=== PATIENT | female | born 1960 | race Caucasian/White ===

== ENCOUNTER 2018-09-09 13:38 | Outpatient (CLI) | payer MEDICAID, SELFPAY ==
--- NOTE | 2018-09-09 13:06 | DI.RAD_ITS ---
SYMPTOM/DIAGNOSIS: F/U RT DASH RIGHT HIP: The patient is status post THR. The prosthesis is in good position. Surrounding bone intact.
== END 2018-09-09 13:58 ==
PROVIDERS: PCP Family Medicine; Visit Provider Student in an Organized Health Care Education/Training Program
DX: Z96.641 Presence of right artificial hip joint (principal); Z47.1 Aftercare following joint replacement surgery
CPT/HCPCS: 73502

== ENCOUNTER 2019-04-15 00:49 | Outpatient (CLI) | payer MEDICAID, SELFPAY ==
--- NOTE | 2019-04-15 15:20 | DI.MAMMO_ITS ---
SYMPTOMS/DIAGNOSIS: SCREENING, Z12.31 MAMMOGRAMS: Mammograms were interpreted according to the usual protocol including computer analysis with CAD system, tomosynthesis and C view imaging. The breast tissue is of moderate radiodensity. There is no dominant mass. There are no suspicious calcifications and there has been no significant interval change when compared with the previous images. SUMMARY: No evidence of malignancy, category 1. Yearly screening mammography is recommended. Breast density category B. SA ASSESSMENT OF FINDINGS: Negative. Category 1. Patient will receive a letter notifying them of these results. BI-RADS category B. There are scattered areas of fibroglandular density.
== END 2019-04-15 01:09 ==
PROVIDERS: PCP Family Medicine; Visit Provider Family Medicine
DX: Z12.31 Encounter for screening mammogram for malignant neoplasm of breast (principal)
CPT/HCPCS: 77063; 77067

== ENCOUNTER 2019-06-29 15:16 | Outpatient (REF) | payer MEDICAID, SELFPAY ==
--- NOTE | 2019-06-29 14:45 | SKI_PTH ---
PATIENT: Bibi Canela LOC: [facility] U#:[id number] AGE/SX: 58/F ROOM: RE06/29/[address]: Mile Smith MD, DC : 1960 BED: DIS: 06/29/2019 SPEC #: [id number] RECD: 06/29/19 17:55 STATUS: DANILO REQ #: [id number] ASHLI: 06/29/19 14:[address]: Mile Smith DEPT: Surgical Specimen RECD BY: Melanie Durán Tissues: 1 - SKIN BIOPSY(SHAVE/PUNCH) Procedures: SKIN LEVEL 4 Comments: [id number]
== END 2019-06-29 15:36 ==
LOC: LBN 15:16
PROVIDERS: PCP Family Medicine; Visit Provider Family Medicine
DX: D23.72 Other benign neoplasm of skin of left lower limb, including hip (principal)
CPT/HCPCS: 88305

== ENCOUNTER 2020-08-10 01:10 | Outpatient (CLI) | payer MEDICAID, SELFPAY ==
--- NOTE | 2020-08-10 08:41 | DI.RAD_ITS ---
EXAM: XR HIP LT COMPLETE AP PELVIS CLINICAL HISTORY: lt hip pain, s/p rt hip replacement,m25.552 TECHNIQUE: COMPARISON: CR XR hip RT complete AP pelvis from 09/09/2018 FINDINGS: Three views were obtained. There is a total hip joint replacement position on the right. Components appear well seated as visualized. There is fairly good preservation of the cartilaginous joint space of the left hip. There are mild h ypertrophic marginal osteophytes the femoral head and acetabulum and osteophytes of the greater troch anter of the femur are noted as well. Mild DJD of both SI joints noted. IMPRESSION: Mild DJD left hip. RADIATION DOSE DELIVERED: Total DLP
== END 2020-08-10 01:30 ==
PROVIDERS: PCP Family Medicine; Visit Provider Family Medicine
DX: M16.12 Unilateral primary osteoarthritis, left hip (principal)
CPT/HCPCS: 73502

== ENCOUNTER 2020-08-10 01:29 | Outpatient (CLI) | payer MEDICAID, SELFPAY ==
[2020-08-10 09:07] LABS: HCT 40.2 % (36.0-46.0); HGB 13.1 g/dL (11.2-15.7); MCH 31.1 pg (27.0-33.0); MCHC 32.6 % (32.0-36.0); MCV 95.5 fL (80-95); MPV 9.6 fL (8.0-11.0); Platelet Count 266 10^3/uL (130-400); RBC 4.21 10^6/uL (3.93-5.22); RDW 12.8 % (11.7-14.6); RDW-SD 45.3 fL; WBC 3.79 10^3/uL (4.4-10.8)
[2020-08-10 10:47] LABS: ALT 20 U/L (14-59); AST 17 U/L (15-37); Albumin 3.8 g/dL (3.4-5.0); Alkaline Phosphatase 64 U/L (46-116); Anion Gap 6.4 mmol/L (3-11); BUN 12 mg/dL (7-18); Bilirubin, Total 0.4 mg/dL (0.2-1.0); CO2 31.6 mmol/L (21.0-32.0); CREATININE 0.67 mg/dL (0.55-1.02); Calcium 8.7 mg/dL (8.5-10.1); Chloride 105 mmol/L (98-107); Glucose 102 mg/dL (74-106); Potassium 4.1 mmol/L (3.5-5.1); Sodium 143 mmol/L (136-145); TSH (W/Ref FT4) 0.85 uIU/mL (0.36-3.74); Total Protein 6.9 g/dL (6.4-8.2)
== END 2020-08-10 01:49 ==
PROVIDERS: PCP Family Medicine; Visit Provider Family Medicine
DX: R63.4 Abnormal weight loss (principal)
CPT/HCPCS: 36415; 80053; 85027; 84443

== ENCOUNTER 2020-12-04 03:56 | Outpatient (CLI) | payer MEDICAID, SELFPAY ==
[2020-12-05 12:37] LABS: COVID-19 RT-PCR UVMMC Result Negative (Negative)
== END 2020-12-04 04:16 ==
PROVIDERS: PCP Family Medicine; Visit Provider Family Medicine
DX: Z20.822 Contact with and (suspected) exposure to COVID-19 (principal)
CPT/HCPCS: U0003

== ENCOUNTER 2021-03-22 10:29 | Outpatient (REF) | payer MEDICAID, SELFPAY ==
--- NOTE | 2021-03-22 09:00 | PAPFT_PTH ---
PATIENT: Bibi Canela LOC: [facility] U#:[id number] AGE/SX: 60/F ROOM: RE03/22/[address]: Mile Smith MD, DC : 1960 BED: DIS: 03/22/2021 SPEC #: [id number] RECD: 03/22/21 12:40 STATUS: DANILO REQ #: [id number] ASHLI: 03/22/21 09:[address]: Mile Smith DEPT: [facility] Cytology RECD BY: Melanie Durán Tissues: 1 - CX/ENDOCX FOR PAP SMEARS Procedures: PAP THIN PREP/UVM Screening HPV DNA PROBE Comments: [id number]
== END 2021-03-22 10:30 | disposition home or self-care (01) ==
LOC: LBN 10:29
PROVIDERS: PCP Family Medicine; Visit Provider Family Medicine
DX: Z12.4 Encounter for screening for malignant neoplasm of cervix (principal); Z11.51 Encounter for screening for human papillomavirus (HPV)
CPT/HCPCS: 88142; 87624

== ENCOUNTER 2021-04-05 01:29 | Outpatient (CLI) | payer MEDICAID, SELFPAY ==
--- NOTE | 2021-04-05 08:15 | DI.MAMMO_ITS ---
Exam(s) MAMMO SCREENING EXAM: MAMMO SCREENING CLINICAL HISTORY: screening,Z12.39 TECHNIQUE: Bilateral full field digital CC and MLO mammographic images were obtained with 3D tomosyn thesis and utilizing computer aided detection (CAD). COMPARISON: Available for comparison. FINDINGS: Masses/Architectural Distortion: There is a round asymmetry in the retroareolar region of the right b reast on the MLO view. Microcalcifications: No suspicious pleomorphic-type are seen. Skin Thickening/Nipple Retraction: None. IMPRESSION: 1. Asymmetry in the retroareolar region of the right breast on the MLO view. 2. Spot compression view is recommended for further evaluation. Ultrasound may be indicated at that time. BI-RADS Category 0 - Assessment Incomplete: Need additional imaging evaluation Breast Density - Category B - Scattered areas of fibroglandular density Breast density category C or D implies that the patient has dense breast tissue. Dense breast tissue is very common and is not abnormal but dense breast tissue can make it harder to find cancer on a ma mmogram. Also, dense breast tissue may increase their breast cancer risk. This information about the result of the mammogram report was provided to the patient to raise their awareness. Use this report when you speak with the patient about their risks for breast cancer, which includes their family hist ory. At that time, you may recommend for more screening tests (Ultrasound or MRI) as they might be us eful based on their risk. A negative radiographic report should not delay biopsy if a dominant or clinically suspicious mass is present. Up to ten percent of cancers are not identified on mammography. A negative report may reinforce clinical impression. Adenosis and dense breasts may obscure an underlying neoplasm. False positive reports average 6 to 10%. Patient will receive a letter notifying them of these results.
== END 2021-04-05 01:49 ==
PROVIDERS: PCP Family Medicine; Visit Provider Family Medicine
DX: Z12.31 Encounter for screening mammogram for malignant neoplasm of breast (principal); R92.8 Other abnormal and inconclusive findings on diagnostic imaging of breast
CPT/HCPCS: 77063; 77067

== ENCOUNTER 2021-04-20 01:25 | Outpatient (CLI) | payer MEDICAID, SELFPAY ==
--- NOTE | 2021-04-20 | DI.US_ITS ---
Exam(s) MG MAMMO SCREEN CALL BACK UNI US BREAST RT LIMITED EXAM: MG MAMMO SCREEN CALL BACK UNI and U/S breast RT limited CLINICAL HISTORY: F/U MAMMO, ASYMMETRY RT BREAST. TECHNIQUE: Craniocaudal and mediolateral oblique Full Field Digital Mammography views of the right b reast with Computer Aided Diagnosis followed by Tomosynthesis and right breast ultrasound. COMPARISON: Priors available for comparison. FINDINGS: Mammography/Tomosynthesis: Masses/Architectural Distortion: None seen. Microcalcifictions: No suspicious pleomorphic-type are seen. Skin Thickening/Nipple Retraction: None. Right breast US: Echotexture: Normal appearance of the glandular tissue. Shadowing: No suspicious foci. Cyst: None. Solid lesions: None seen. Ductal dilation: None. IMPRESSION: 1. No evidence of malignancy is noted. 2. Unless there is more urgent need, follow-up screening mammography is recommended, as per [place] [employer] guidelines. 3. The findings were discussed with the patient on the date of the examination. BI-RADS Category 1 - Negative Breast Density - Category B - Scattered areas of fibroglandular density Breast density Category C or D implies that the patient has dense breast tissue. Dense breast tissue can make it harder to find cancer on a mammogram. Dense breast tissue is also associated with an incr eased risk of breast cancer. This information about the result of the mammogram report was provided to the patient to raise their awareness. Use this report when you speak with the patient about their risks for breast cancer, which includes their family history. At that time, you may recommend additional screening tests (Ultrasoun d or MRI) as these tests may add significant information. A negative radiographic report should not delay biopsy if a dominant or clinically suspicious mass is present. Up to ten percent of cancers are not identified on mammography. A negative report may reinforce clinical impression. Adenosis and dense breasts may obscure an underlying neoplasm. False positive reports average 6 to 10%. Patient will receive a letter notifying them of these results.
== END 2021-04-20 01:45 ==
PROVIDERS: PCP Family Medicine; Visit Provider Family Medicine
DX: Z12.31 Encounter for screening mammogram for malignant neoplasm of breast (principal); R92.8 Other abnormal and inconclusive findings on diagnostic imaging of breast; N64.89 Other specified disorders of breast
CPT/HCPCS: 76642; 77063; 77067

== ENCOUNTER 2021-07-02 13:40 | Outpatient (CLI) | payer MEDICAID, SELFPAY ==
--- NOTE | 2021-07-02 13:30 | DI.RAD_ITS ---
Exam(s) XR WRIST RT COMPLETE EXAM: XR WRIST RT COMPLETE CLINICAL HISTORY: r/u calcium. TECHNIQUE: 2D digital imaging was performed. COMPARISON: No exams were available for comparison FINDINGS: BONES: No acute fracture is present. No bony destructive lesion is seen. Well corticated osseous dens ity is seen at the ulnar styloid process. JOINTS: The carpal bones are normally aligned. There are mild degenerative changes at the 1st CMC desean nt. SOFT TISSUE: There is focal soft tissue swelling at the lateral aspect of the distal radius. No unde rlying osseous abnormality or soft tissue calcification is noted. IMPRESSION: 1. Focal soft tissue swelling at the lateral aspect of the distal radius. No underlying osseous abnor mality or soft tissue calcification is noted. Follow-up as clinically appropriate. 2. Mild degenerative changes at the 1st CMC joint. DATA REPOSITORY: RADIATION DOSE DELIVERED:
== END 2021-07-02 13:41 | disposition home or self-care (01) ==
LOC: DIORS 13:40
PROVIDERS: PCP Family Medicine; Referring Provider Family Medicine; Visit Provider Physician Assistant Surgical
DX: M67.431 Ganglion, right wrist (principal); M79.89 Other specified soft tissue disorders; M18.9 Osteoarthritis of first carpometacarpal joint, unspecified
CPT/HCPCS: 73110

== ENCOUNTER 2021-12-27 00:59 | Outpatient (CLI) | payer MEDICAID, SELFPAY ==
--- NOTE | 2021-12-27 13:23 | DI.RAD_ITS ---
Exam(s) XR HIP LT COMPLETE AP PELVIS EXAM: XR HIP LT COMPLETE AP PELVIS CLINICAL HISTORY: l hip pain,M25.562. TECHNIQUE: 2D digital imaging was performed. COMPARISON: CR XR HIP LT COMPLETE AP PELVIS from 08/10/2020 FINDINGS: There are no pelvic nor hip fractures. Right hip prosthesis is again noted. There is no obvious narrowing of the left hip joint but there are marginal osteophytes at the left fe moral head level again noted. Lateral view also reveals a few small calcific densities off the great er trochanter level of the left hip. No ominous osseous lesions. IMPRESSION: Degenerative changes in the left hip as described above. Stable appearing right hip prosthesis. DATA REPOSITORY: RADIATION DOSE DELIVERED:
== END 2021-12-27 01:19 ==
PROVIDERS: PCP Family Medicine; Visit Provider Family Medicine
DX: M25.552 Pain in left hip (principal); M16.12 Unilateral primary osteoarthritis, left hip; Z96.641 Presence of right artificial hip joint
CPT/HCPCS: 73502

== ENCOUNTER 2022-01-31 02:04 | Outpatient (CLI) | payer MEDICAID, SELFPAY ==
--- NOTE | 2022-01-31 08:15 | DI.RAD_ITS ---
Exam(s) RF JOINT INJECTION FLUORO GUID EXAM: RF JOINT INJECTION FLUORO GUID CLINICAL HISTORY: L HIP INJ UNDER FLUORO,lt hip pain, m25.552. TECHNIQUE: 2D and realtime digital imaging was performed. COMPARISON: No exams were available for comparison FINDINGS: Fluoroscopy was provided for Dr. Martinez for guidance with performing a left hip injection. A hard copy image shows a needle projecting at the lateral aspect of the left femoral head and injection of contrast. Fluoro time 1 second. Please see procedure note for details. RADIATION DOSE DELIVERED: sayda Hernandez=5.58 mGy
--- NOTE | 2022-01-31 14:55 | W.PROCNOTE ---
Date of service: 01/31/22 Time of Service: 14:55 Procedure Note Date of procedure: 01/31/22 Procedure: Left Hip Injection with Fluoroscopic Guidance Surgeon/Proceduralist/Physician: Brandon Martinez Procedure Diagnosis: Left Hip Osteoarthritis Procedure Indications: Bibi has had persistent pain of the LEFT hip and groin. Noninvasive measures have been tried. To serve as both diagnostic and therapeutic, an injection under fluoroscopy was recommended. I had discussed the risks of the procedure and the patient elected to proceed. Procedure Description: Bibi was greeted in the flouroscopy room. The correct side was identified and the consent was reviewed with the patient and signed. The patient was then placed in the supine position on the fluoroscopy table. The LEFT hip was then prepped with Chloraprep. The anterolateral injection starting point was identiifed by bony landmarks and fluoroscopy. The skin and soft tissue in the tract of the injection was anesthetized with 1% Lidocaine. A spinal needle was then inserted deep into the hip joint at the level of the lateral femoral neck under fluoroscopic guidance. A small amount of Omnipaque solution was injected to confirm intraarticular placement. Once confirmed, the hip was injected with 6cc of 0.5% Bupivicaine and 80mg of Depo-Medrol. A bandaid was placed on the injection site. The patient tolerated the procedure well.
[2022-01-31] MEDS: Omnipaque 300 MG/ML 10 ML BTL IJ (15:12)
[2022-01-31] MEDS: methylPREDNISolone ACETATE 80 MG/ML VIAL IM (15:12)
== END 2022-01-31 02:24 ==
PROVIDERS: PCP Family Medicine; Visit Provider Student in an Organized Health Care Education/Training Program
DX: M25.552 Pain in left hip (principal)
CPT/HCPCS: 20610; 77002; J1040

== ENCOUNTER → 2023-08-01 01:34 | Outpatient (CLI) | payer MEDICAID, SELFPAY ==
--- NOTE | 2023-08-01 06:45 | DI.RAD_ITS ---
Exam(s) XR KNEE LT 4V+ EXAM: XR KNEE LT 4V+ CLINICAL HISTORY: l knee pain,m25.562. TECHNIQUE: 2D digital imaging was performed of the left knee. Five images were obtained. Merchant, AP, lateral and PA tunnel views were obtained. COMPARISON: No exams were available for comparison FINDINGS: BONES: No acute fracture is present. No bony destructive lesion is seen. There is an enthesophyte at the superior patella. JOINTS: The knee is normally aligned. No joint effusion is seen. No loose body. SOFT TISSUE: Atherosclerosis. IMPRESSION: No acute abnormality. DATA REPOSITORY: RADIATION DOSE DELIVERED:
--- NOTE | 2023-08-01 07:00 | DI.US_ITS ---
Exam(s) US LOWER EXTREMITY VENOUS LT EXAM: US LOWER EXTREMITY VENOUS LT CLINICAL HISTORY: posterior knee pain ? bakers cyst,m25.562 TECHNIQUE: Left lower extremity venous ultrasound performed using grayscale, color-flow, and spectra l Doppler analysis. COMPARISON: No exams were available for comparison FINDINGS: The left common femoral, femoral and popliteal veins demonstrate normal compressibility, augmentation , and color Doppler. The posterior tibial and peroneal veins are patent. The saphenofemoral junction is unremarkable. There is no evidence of a Burks cyst. The soft tissues are unremarkable. IMPRESSION: No evidence of a left lower extremity DVT or Burks's cyst. DATA REPOSITORY:
--- NOTE | 2023-08-01 08:27 | DI.MAMMO_ITS ---
Exam(s) MAMMO SCREENING EXAM: MAMMO SCREENING CLINICAL HISTORY: screening,z12.39 TECHNIQUE: Bilateral full field digital CC and MLO mammographic images were obtained with 3D tomosyn thesis and utilizing computer aided detection (CAD). COMPARISON: Available for comparison. FINDINGS: Masses/Architectural Distortion: None seen. Microcalcifications: No suspicious pleomorphic-type are seen. Skin Thickening/Nipple Retraction: None. IMPRESSION: 1. No significant interval change with no specific features of malignancy noted. 2. Unless there is more urgent need, screening mammography is recommended, as per [employer] guidelines. BI-RADS Category 1 - Negative Breast Density - Category B - Scattered areas of fibroglandular density Breast density category C or D implies that the patient has dense breast tissue. Dense breast tissue is very common and is not abnormal but dense breast tissue can make it harder to find cancer on a ma mmogram. Also, dense breast tissue may increase their breast cancer risk. This information about the result of the mammogram report was provided to the patient to raise their awareness. Use this report when you speak with the patient about their risks for breast cancer, which includes their family hist ory. At that time, you may recommend for more screening tests (Ultrasound or MRI) as they might be us eful based on their risk. A negative radiographic report should not delay biopsy if a dominant or clinically suspicious mass is present. Up to ten percent of cancers are not identified on mammography. A negative report may reinforce clinical impression. Adenosis and dense breasts may obscure an underlying neoplasm. False positive reports average 6 to 10%. Patient will receive a letter notifying them of these results.
--- NOTE | 2023-08-01 09:15 | DI.DEXA_ITS ---
Exam(s) XR DEXA BONE DENSITY W/WO LISY EXAM: XR DEXA BONE DENSITY W/WO LISY CLINICAL HISTORY: screening for osteoporosis,z78.0 in postmenopausal woman TECHNIQUE: COMPARISON: No exams were available for comparison FINDINGS: Lateral Spine Image: Unremarkable. No compression deformities identified. Left hip: Total T-Score: -2.0 Total Z-Score: -0.8 T- and Z-scores: Findings are consistent with osteopenia. Lumbar Spine: Total T-Score: -0.7 Total Z-Score: 0.9 T- and Z-scores: Within normal limits. IMPRESSION: No evidence of osteoporosis.
== END ==
PROVIDERS: PCP Family Medicine; Visit Provider Family Medicine
DX: M25.562 Pain in left knee (principal); Z12.31 Encounter for screening mammogram for malignant neoplasm of breast; Z78.0 Asymptomatic menopausal state
CPT/HCPCS: 77063; 77067; 77080; 73564; 93971

== ENCOUNTER 2023-08-01 09:55 | Outpatient (CLI) | payer MEDICAID, SELFPAY ==
[2023-08-01 09:40] LABS: HCT 43.4 % (36.0-46.0); HGB 13.9 g/dL (11.2-15.7); MCH 30.8 pg (27.0-33.0); MCV 96 fL (80-95); MPV 9.3 fL (8.0-11.0); Platelet Count 287 10^3/uL (130-400); RBC 4.51 10^6/uL (3.93-5.22); RDW 12.6 % (11.7-14.6); RDW-SD 44.9 fL; WBC 5.62 10^3/uL (4.4-10.8)
[2023-08-01 10:27] LABS: ALT 30 U/L (14-59); AST 30 U/L (15-37); Albumin 4.1 g/dL (3.4-5.0); Alkaline Phosphatase 69 U/L (46-116); Anion Gap 8.5 mmol/L (3-11); BUN 14 mg/dL (7-18); Bilirubin, Total 0.8 mg/dL (0.2-1.0); CO2 28.5 mmol/L (21.0-32.0); CREATININE 0.7 mg/dL (0.55-1.02); Calcium 9.3 mg/dL (8.5-10.1); Calculated LDL 147 mg/dL (<100); Chloride 102 mmol/L (98-107); Cholesterol 250 mg/dL (<200); Estimated GFR 97.12 (mL/min/1.73m2); Glucose 106 mg/dL (74-106); HDL Cholesterol 96 mg/dL (40-60); Potassium 3.9 mmol/L (3.5-5.1); Sodium 139 mmol/L (136-145); TSH (W/Ref FT4) 0.71 uIU/mL (0.36-3.74); Total Protein 7.8 g/dL (6.4-8.2); Triglyceride 39 mg/dL (<150)
== END 2023-08-01 09:56 | disposition home or self-care (01) ==
LOC: LBO 09:55
PROVIDERS: PCP Family Medicine; Visit Provider Family Medicine
DX: I10 Essential (primary) hypertension (principal); E03.9 Hypothyroidism, unspecified; Z00.00 Encounter for general adult medical examination without abnormal findings; E78.79 Other disorders of bile acid and cholesterol metabolism
CPT/HCPCS: 36415; 80053; 80061; 85027; 84443

== ENCOUNTER 2023-12-25 15:07 | Outpatient (CLI) | payer MEDICAID, SELFPAY ==
--- NOTE | 2023-12-25 13:30 | DI.RAD_ITS ---
Exam(s) XR HIP LT COMPLETE AP PELVIS EXAM: XR HIP LT COMPLETE AP PELVIS CLINICAL HISTORY: L hip/knee pain. TECHNIQUE: 2D digital imaging was performed of the left hip. Two views were obtained. AP pelvis an d lateral left hip views were obtained. COMPARISON: CR XR HIP LT COMPLETE AP PELVIS from 12/27/2021 FINDINGS: BONES: No acute fracture is present. No bony destructive lesion is seen. JOINTS: No dislocation present. The patient has a prior right total hip replacement. In the left hip there is mild axial joint space narrowing. There are osteophytes seen at the femoral head. There i s an enthesophyte at the greater trochanter. SOFT TISSUE: Normal. IMPRESSION: Left hip arthrosis. DATA REPOSITORY: RADIATION DOSE DELIVERED:
== END 2023-12-25 15:08 | disposition home or self-care (01) ==
LOC: DIORS 15:07
PROVIDERS: PCP Family Medicine; Visit Provider Physician Assistant
DX: M16.12 Unilateral primary osteoarthritis, left hip (principal)
CPT/HCPCS: 73502

== ENCOUNTER → 2024-03-09 03:59 | Outpatient (CLI) | payer MEDICAID, SELFPAY ==
--- NOTE | 2024-03-09 07:15 | DI.MRI_ITS ---
Exam(s) MR LOWER JOINT LT WO EXAM: MR LOWER JOINT LT WO CLINICAL HISTORY: PAIN,TEAR MEDIAL MENISCUS LT KNEE,INTERNAL DERANGEMENT,S83.242A,M23.92. TECHNIQUE: Multiplanar multisequence MRI was performed. COMPARISON: CR XR KNEE LT 4V+ from 08/01/2023 FINDINGS: BONES: There is no fracture or contusion pattern. JOINTS: There is mild hyperintense signal and thinning of the articular cartilage overlying the lockhart la with mild subchondral edema. There is a small amount of fluid in the joint space. TENDONS: Extensor mechanism: Unremarkable. Medial retinaculum: Unremarkable. Lateral retinaculum: Unremarkable. Popliteus: Unremarkable. MUSCLES: Unremarkable. MENISCI: The medial meniscus is unremarkable. There is increased signal seen in the root of the late ral meniscus. SOFT TISSUES: Unremarkable. LIGAMENTS: Anterior Cruciate: Unremarkable. Posterior Cruciate: Unremarkable. Medial Collateral:Unremarkable. Lateral Collateral: Unremarkable. OTHER: Venous varicosities are seen in the soft tissues. IMPRESSION: 1. Findings suspicious for tear versus degeneration in the root of the lateral meniscus. 2. No evidence of a ligament tear. 3. Mild cartilage loss overlying the patella. DATA REPOSITORY:
== END ==
PROVIDERS: PCP Family Medicine; Visit Provider Student in an Organized Health Care Education/Training Program
DX: S83.242A Other tear of medial meniscus, current injury, left knee, initial encounter (principal); X58.XXXA Exposure to other specified factors, initial encounter
CPT/HCPCS: 73721

== ENCOUNTER 2024-06-25 14:46 | Outpatient (REF) | payer MEDICAID, SELFPAY | END 2024-06-25 14:47 | disposition home or self-care (01) | LOC: LBN 14:46 | PROVIDERS: PCP Family Medicine; Visit Provider Family Medicine | DX: J02.9 Acute pharyngitis, unspecified (principal) | CPT/HCPCS: 87070 ==

== ENCOUNTER 2024-10-18 13:02 | Outpatient (REF) | payer MEDICAID, SELFPAY ==
--- NOTE | 2024-10-18 09:30 | PAPFT_PTH ---
PATIENT: Bibi Canela LOC: [facility] U#:[id number] AGE/SX: 64/F ROOM: RE10/18/[address]: Mile Smith MD, DC : 1960 BED: DIS: 10/18/2024 SPEC #: [id number] RECD: 10/18/24 13:16 STATUS: DANILO REQ #: [id number] ASHLI: 10/18/24 09:[address]: Mile Smith DEPT: [facility] Cytology RECD BY: Melanie Durán Tissues: 1 - CX/ENDOCX FOR PAP SMEARS Procedures: PAP THIN PREP/UVM Screening HPV DNA PROBE Comments: [id number] (HPV 16 & 18/45)
== END 2024-10-18 13:03 | disposition home or self-care (01) ==
LOC: LBN 13:02
PROVIDERS: PCP Family Medicine; Visit Provider Family Medicine
DX: Z00.00 Encounter for general adult medical examination without abnormal findings (principal); R10.9 Unspecified abdominal pain
CPT/HCPCS: 88142; 87624

== ENCOUNTER 2024-12-28 01:49 | Outpatient (CLI) | payer MEDICAID, SELFPAY ==
--- NOTE | 2024-12-28 07:00 | DI.US_ITS ---
Exam(s) US SOFT TISSUE EXTREMITY EXAM: US SOFT TISSUE EXTREMITY CLINICAL HISTORY: ? ganglion,Pt has high family hx CA,localized swelling,M67.431,R22.9. TECHNIQUE: Ultrasound was performed using standard protocol. COMPARISON: No exams were available for comparison FINDINGS: Sonographic assessment utilizing grayscale and color Doppler imaging was performed and targeted to th e area of clinical concern at the mid posterior forearm. Palpable abnormality, corresponds to a circumscribed 10 x 2 x 10 millimeter hypoechoic nodule within the subcutaneous fat. There are no suspicious features. IMPRESSION: 10 millimeter nodule in the subcutaneous fat. Findings are nonspecific. Clinical correlation recomm ended. DATA REPOSITORY:
== END 2024-12-28 02:09 ==
LOC: DI 01:49
PROVIDERS: PCP Family Medicine; Visit Provider Nurse Practitioner Family
DX: M67.431 Ganglion, right wrist (principal)
CPT/HCPCS: 76881

== ENCOUNTER 2024-12-30 11:45 | Outpatient (CLI) | payer MEDICAID, SELFPAY ==
[2024-12-30 12:34] LABS: Abs Immature Grans 0.02 10^3/uL (0.0-0.06); Absolute Basophil Count 0.07 10^3/uL (0.0-0.2); Absolute Eosinophil Count 0.07 10^3/uL (0.0-0.7); Absolute Lymphocyte Count 1.41 10^3/uL (1.2-3.4); Absolute Monocyte Count 0.42 10^3/uL (0.1-0.8); Absolute Neutrophil Count 3.91 10^3/uL (1.2-6.7); Basophils % 1.2 %; Eosinophils % 1.2 %; HCT 42.4 % (36.0-46.0); HGB 13.4 g/dL (11.2-15.7); Immature Grans % 0.3 %; Lymphocytes % 23.9 %; MCH 30.7 pg (27.0-33.0); MCHC 31.6 % (32.0-36.0); MCV 97 fL (80-95); MPV 9.6 fL (8.0-11.0); Monocytes % 7.1 %; Neutrophils % 66.3 %; Platelet Count 357 10^3/uL (130-400); RBC 4.37 10^6/uL (3.93-5.22); RDW 12.9 % (11.7-14.6); RDW-SD 46.3 fL
== END 2024-12-30 11:46 | disposition home or self-care (01) ==
LOC: LOS 11:45
PROVIDERS: PCP Family Medicine; Referring Provider Family Medicine; Visit Provider Family Medicine
DX: L53.9 Erythematous condition, unspecified (principal)
CPT/HCPCS: 36415; 85025

== ENCOUNTER 2025-03-11 14:11 | Outpatient (REF) | payer MEDICAID, SELFPAY ==
--- NOTE | 2025-03-11 13:35 | SKI_PTH ---
PATIENT: Bibi Canela LOC: [facility] U#:[id number] AGE/SX: 64/F ROOM: RE03/11/[address]: JM Guzman : 1960 BED: DIS: 03/11/2025 SPEC #: [id number] RECD: 03/11/25 18:00 STATUS: DANILO MAYERS #: [id number] ASHLI: 03/11/25 13:[address]: Nakia Arreaga DEPT: Surgical Specimen RECD BY: Melanie Durán ENTERED: 03/11/25 18:01 SP TYPE: [place] RIO DR: Mile Smith MD, DC Tissues: 1 - SKIN CYST/TAG/DEBRIDEMENT Procedures: IMMUNOPEROXIDASE STAIN GROSS AND MICRO LEVEL 3 Comments: [id number]
== END 2025-03-11 14:12 | disposition home or self-care (01) ==
LOC: LBN 14:11
PROVIDERS: PCP Family Medicine; Visit Provider Physical Therapy Assistant
DX: D23.9 Other benign neoplasm of skin, unspecified (principal)
CPT/HCPCS: 88304; 88361

== ENCOUNTER 2025-04-06 02:44 | Outpatient (CLI) | payer MEDICAID, SELFPAY ==
[2025-04-06 09:44] LABS: HCT 40.7 % (36.0-46.0); HGB 13.6 g/dL (11.2-15.7); MCH 31.7 pg (27.0-33.0); MCHC 33.4 % (32.0-36.0); MCV 95 fL (80-95); MPV 9.8 fL (8.0-11.0); Platelet Count 277 10^3/uL (130-400); RBC 4.29 10^6/uL (3.93-5.22); RDW 12.7 % (11.7-14.6); RDW-SD 43.9 fL; WBC 5.23 10^3/uL (4.4-10.8)
[2025-04-06 09:54] LABS: Hemoglobin A1C 5.7 % (<5.7)
[2025-04-06 10:15] LABS: Iron 111 ug/dL (50-170)
[2025-04-06 10:43] LABS: ALT 26 U/L (14-59); AST 24 U/L (15-37); Alkaline Phosphatase 62 U/L (46-116); Anion Gap 6.4 mmol/L (3-11); BUN 11 mg/dL (7-18); Bilirubin, Total 0.9 mg/dL (0.2-1.0); CO2 29.6 mmol/L (21.0-32.0); CREATININE 0.9 mg/dL (0.55-1.02); Calcium 9.2 mg/dL (8.5-10.1); Chloride 100 mmol/L (98-107); Estimated GFR 71.39 (mL/min/1.73m2); Ferritin 107 ng/mL (8-252); Glucose 112 mg/dL (74-106); Potassium 3.7 mmol/L (3.5-5.1); Sodium 136 mmol/L (136-145); TSH (W/Ref FT4) 0.62 uIU/mL (0.36-3.74); Total Protein 7.4 g/dL (6.4-8.2); Vitamin B12 667 pg/mL (193-986)
== END 2025-04-06 02:45 | disposition home or self-care (01) ==
LOC: LBO 02:44
PROVIDERS: PCP Family Medicine; Visit Provider Family Medicine
DX: R42 Dizziness and giddiness (principal); E11.9 Type 2 diabetes mellitus without complications; E03.9 Hypothyroidism, unspecified; I10 Essential (primary) hypertension; R71.8 Other abnormality of red blood cells
CPT/HCPCS: 36415; 80053; 85027; 82607; 82728; 83036; 83540; 84443